=== PATIENT | male | born 1945 | race Caucasian/White ===

== ENCOUNTER 2017-09-22 05:50 | Emergency (ER) | payer BC ==
[~2017-09-22] VITALS: Ht 188 cm; Wt 106.6 kg
[2017-09-22 06:10] VITALS: BP 125/73
[2017-09-22] MEDS ORDERED: KETOROLAC TROMETH 60MG/2ML VIAL IM ONE (06:15)
== END 2017-09-22 07:19 | disposition home or self-care (01) ==
LOC: ER 05:54
DX: M70.32 Other bursitis of elbow, left elbow (principal); I48.91 Unspecified atrial fibrillation; Z96.89 Presence of other specified functional implants
CPT/HCPCS: 73080